=== PATIENT | female | born 1950 | race Caucasian/White ===

== ENCOUNTER 2018-05-06 23:13 | Emergency (ER) | payer OTHER, MEDICARE ==
--- NOTE | 2018-05-06 23:16 | PDOC ---
History of Present Illness - General Chief Complaint: Pain Stated Complaint: BODY PAIN Time Seen by Provider: 05/06/18 23:16 - History of Present Illness Initial Comments: 05/07/18 01:39 Chief complaint: Headache fever chills body aches joint pain History of present illness: 67 years old no significant past medical history presents to the emergency department with headaches on Monday and Monday of last week which have since resolved this was followed then by subjective fever chills diffuse body aches generalized fatigue malaise and joint pains periods joints affected were predominantly her larger joints starting in the left ankle than bilateral knees hips shoulders elbows and wrists. Symptoms were intermittent seem to come and go were traditionally worsening night but didn't seem to respond to Tylenol. Today patient began to develop a rash today after attending a concert in the evening joint pain began to return and she decided to come to the emergency department for evaluation. No travel no sick contacts to stop guarding no known tick bites possible some mosquito bites recently. Past History - Past Medical History Allergies/Adverse Reactions: Allergies Allergy/AdvReac Type Severity Reaction Status Date / Time No Known Allergies Allergy Verified 05/06/18 23:15 Home Medications: Ambulatory Orders Omeprazole [Prilosec] 40 mg PO DAILY 03/12/15 GI Disorders: Yes (ACID REFLUX) - Immunization History Immunization Up to Date: No - Suicide/Smoking/Psychosocial Hx Smoking History: Never smoked Have you smoked in the past 12 months: No Hx Alcohol Use: (OCC) Substance Use Type: None Review of Systems - Review of Systems Comments:: 05/07/18 01:43 ROS: A complete review of 10 out of 10 review of systems is taken and is negative apart from what is previously mentioned below and in the HPI. *Physical Exam - Physical Exam Comments: 05/07/18 01:43 Vitals: Triage Vital signs reviewed General Appearance: no acute distress, well nourished well developed, Head: Atraumatic, Eyes: Pupils equal reactive round, extraocular movement intact Ears: TM's normal bilaterally; Nose: Nares patent bilaterally;no nasal congestion Throat: Posterior oropharynx without erythema, mucous membranes moist, Neck: Supple;No Nucal rigidity Chest Wall: Nontender Cardiac: Regular rate and rhythym, no murmurs, no rubs, no gallops, Lungs: Clear to auscultation bilateral, good air movement bilaterally, Abdomen: Soft, non distended, normal bowel sounds, non tender to palpation Extremities: Full range of motion to all extremities, no cyanosis, clubbing, or edema Skin: Warm and dry, diffuse blanching maculopapular rash to arms and legs, puritic, no petechiae Neuro: AOX3; Cranial Nerves 2-12 grossly intact, Strength intact to all extremities, Sensation intact to all extremities,gait normal Psych: normal mood, normal affect Heart Score/ECG Review - ECG Impressions Comment:: 05/07/18 01:[address] elevations no T-wave inversions no evidence of heart block. ED Treatment Course - LABORATORY CBC & Chemistry Diagram: 05/07/18 00:15 05/07/18 00:15 Medical Decision Making - Medical Decision Making 05/07/18 01:45 Chief complaint: Headache fever chills body aches joint pain History of present illness: 67 years old no significant past medical history presents to the emergency department with headaches on Monday and Monday of last week which have since resolved this was followed then by subjective fever chills diffuse body aches generalized fatigue malaise and joint pains periods joints affected were predominantly her larger joints starting in the left ankle than bilateral knees hips shoulders elbows and wrists. Symptoms were intermittent seem to come and go were traditionally worsening night but didn't seem to respond to Tylenol. Today patient began to develop a rash today after attending a concert in the evening joint pain began to return and she decided to come to the emergency department for evaluation. No travel no sick contacts to stop guarding no known tick bites possible some mosquito bites recently. Differential diagnosis includes tickborne illness, viral illness with postviral arthralgias, West Nile virus, parvovirus, EBV, less likely meningitis given no fever no headache no neck stiffness at this time Labs including CBC chemistry tick panel peripheral blood smear West Nile Ehrlichia Babesia Lyme mono and parvovirus sent and blood cultures sent to lab We'll treat with IV fluids Tylenol observing reassessed Reevaluation 145 labs notable for slightly low WBC and elevated ESR CRP tick panel peripheral smear and viral panels pending His point patient is feeling much better after Tylenol fluids no significantly worrisome findings on workup patient has PCP who she'll follow-up with tomorrow I also provided the patient with infectious disease follow-up for tomorrow She was instructed to return to the emergency department immediately for any severe worsening symptoms otherwise she will follow-up with her doctor infectious disease for further evaluation and follow up on the remainder of the blood work which was sent tonight. Findings, the need for follow-up and strict return instructions discussed with patient. *DC/Admit/Observation/Transfer Diagnosis at time of Disposition: Arthralgia Qualifiers: Joint pain location: hip Laterality: bilateral Qualified Code(s): M25.551 - Pain in right hip - Discharge Dispostion Disposition: HOME Condition at time of disposition: Stable Decision to Admit order: No - Referrals Referrals: Mukesh Sosa MD [Staff Physician] - - Patient Instructions Printed Discharge Instructions: DI for Arthralgia Additional Instructions: Drink plenty of fluids. [id number] Tylenol as directed on package. 25 mg of Benadryl every 4-6 hours as needed for rash. Follow-up tomorrow with your PCP as well as arranging an appointment with Dr. Sosa infectious disease. Return to the emergency department immediately for any high fevers, severe worsening symptoms severe body pains weakness chest pain shortness of breath or for any concerns. - Post Discharge Activity
[2018-05-06 23:18] VITALS: BP 115/67; PULSE 84; TEMP 98.3; BMI 24.3
[2018-05-06] MEDS ORDERED: ACETAMINOPHEN 1000 MG/100 ML VIAL (NON FORMULARY) IVPB ONE (23:58)
[2018-05-06] MEDS ORDERED: SODIUM CHLORIDE 0.9% 1000 ML INFUS.BAG IV ONE (23:58)
[2018-05-07] MEDS ORDERED: ACETAMINOPHEN INJECTION 100 ML IVPB ONE (00:13)
[2018-05-07 00:57] LABS: BASO % 0.3 % (0-2.0); EOS % 1.5 % (0-4.5); HEMATOCRIT 39.5 % (32.4-45.2); HEMOGLOBIN 13.5 GM/dL (10.7-15.3); LYMPH % 37.2 % (8-40); MCH 31.8 pg (25.7-33.7); MCHC 34.1 g/dl (32.0-36.0); MEAN CELL VOLUME 93.2 fl (80-96); MEAN PLT VOLUME 8.6 fl (7.5-11.1); MONO % 9.6 % (3.8-10.2); NEUT % 51.4 % (42.8-82.8); PLATELET COUNT 170 K/MM3 (134-434); RBC 4.24 M/mm3 (3.60-5.2); RDW 13.5 % (11.6-15.6); WHITE BLOOD COUNT 3.9 K/mm3 (4.0-10.0)
[2018-05-07 01:02] LABS: URINE APPEARANCE CLEAR; URINE BILIRUBIN NEGATIVE (<2.0 mg/dL); URINE COLOR STRAW; URINE GLUCOSE (UA) NEGATIVE (NEGATIVE); URINE KETONE 1+ (NEGATIVE); URINE NITRITE NEGATIVE (NEGATIVE); URINE PROTEIN NEGATIVE (NEGATIVE); URINE UROBILINOGEN NEGATIVE mg/dL (0.2-1.0)
[2018-05-07 01:11] LABS: INR 0.98 (0.83-1.09); PROTHROMBIN TIME (PATIENT) 11.1 SEC (9.7-13.0)
[2018-05-07 01:14] LABS: ACTIVATED PTT 29.4 SECONDS (25.2-36.5)
[2018-05-07 01:20] LABS: ALBUMIN 3.8 g/dl (3.4-5.0); ALK PHOS 86 U/L (45-117); ANION GAP 8 MMOL/L (8-16); BILIRUBIN,TOTAL 0.3 mg/dL (0.2-1.0); BLOOD UREA NITROGEN 12 mg/dL (7-18); CALCIUM 8.8 mg/dL (8.5-10.1); CHLORIDE 98 mmol/L (98-107); CO2 28 mmol/L (21-32); CREATININE 0.8 mg/dL (0.55-1.02); GLUCOSE,RANDOM 99 mg/dL (74-106); POTASSIUM 4.2 mmol/L (3.5-5.1); SGOT/AST 42 U/L (15-37); SGPT/ALT 47 U/L (12-78); SODIUM 134 mmol/L (136-145); TOT PROT 7.5 g/dl (6.4-8.2)
[2018-05-07 01:22] LABS: URINE LEUK ESTERASE 2+ (NEGATIVE)
[2018-05-07 02:10] LABS: EPI CELLS FEW /HPF (FEW); URINE BACTERIA RARE /hpf (NONE SEEN); URINE MUCUS RARE
--- NOTE | 2018-05-07 10:27 | EKG ---
Test Reason : Blood Pressure : / mmHG Vent. Rate : 085 BPM Atrial Rate : 085 BPM P-R Int : 190 ms QRS Dur : 088 ms QT Int : 348 ms P-R-T Axes : 074 033 026 degrees QTc Int : 414 ms NORMAL SINUS RHYTHM CANNOT RULE OUT ANTERIOR INFARCT , AGE UNDETERMINED ABNORMAL ECG NO PREVIOUS ECGS AVAILABLE Confirmed by BRUCE BARRIOS MD ([id number]) on 05/07/2018 10:26:56 AM Referred By: MD ROBERTSON Confirmed By:BRUCE BARRIOS MD
[2018-05-08 16:30] LABS: PARV B19 IGG 5.9 index (0.0-0.8); PARV B19 IGM 0.2 index (0.0-0.8)
[2018-05-09 14:17] LABS: WEST NILE VIRUS AB SERUM,IGM Negative (Negative)
[2018-05-09 16:35] LABS: BABESIA MICROTI ANTIBODY IGG <1:10 (Neg:<1:10); BABESIA MICROTI ANTIBODY IGM <1:10 (Neg:<1:10); E. chaff IgG Negative (Neg:<1:64)
== END 2018-05-07 02:32 | disposition home or self-care (01) ==
LOC: FER 23:13
PROC: 3E0337Z Introduction of Electrolytic and Water Balance Substance into Peripheral Vein, Percutaneous Approach (ICD-10-PCS; principal; 2018-05-06)
PROC: 3E033NZ Introduction of Analgesics, Hypnotics, Sedatives into Peripheral Vein, Percutaneous Approach (ICD-10-PCS; 2018-05-06)
PROC: 3E033GC Introduction of Other Therapeutic Substance into Peripheral Vein, Percutaneous Approach (ICD-10-PCS; 2018-05-06)
DX: M25.551 Pain in right hip (principal); M25.552 Pain in left hip; K21.9 Gastro-esophageal reflux disease without esophagitis
CPT/HCPCS: 36415; 71045-TC-FY; 80053; 81003; 81015; 85025; 85610; 85651; 85730; 86140; 86308; 86666; 86747; 86753; 86788; 86789; 87040; 87086; 87186; 87207; 93005; 99283-25; J0131; J7030

== ENCOUNTER 2021-12-17 00:31 | Emergency (ER) | payer OTHER, MEDICARE ==
[2021-12-17 00:40] VITALS: BP 141/76; PULSE 82; TEMP 97.7; BMI 24.3
[2021-12-17] MEDS ORDERED: PHENAZOPYRIDINE HCL 100 MG TABLET (FP) PO ONE (00:53)
[2021-12-17] MEDS ORDERED: NITROFURANTOIN MACROCRYSTAL 50 MG CAPSULE (FP) ONE (00:56)
[2021-12-17] MEDS ORDERED: PHENAZOPYRIDINE HCL 100 MG TABLET (FP) ONE (00:56)
[2021-12-17] MEDS ORDERED: NITROFURANTOIN MACROCRYSTAL 50 MG CAPSULE (FP) PO SCH (01:00)
[2021-12-17 02:27] LABS: EPI CELLS 2 /uL (0-25.1); HYALINE CASTS 1 /uL (0-3.1); PH,URINE 5.5 (5.0-8.0); URINE APPEARANCE CLOUDY; URINE BACTERIA >9,000 /uL (0-1359); URINE BILIRUBIN NEGATIVE (NEGATIVE); URINE COLOR YELLOW; URINE GLUCOSE (UA) NEGATIVE (NEGATIVE); URINE KETONE TRACE (NEGATIVE); URINE LEUK ESTERASE 2+ (NEGATIVE); URINE NITRITE NEGATIVE (NEGATIVE); URINE PROTEIN 2+ (NEGATIVE); URINE RBC 4193 /uL (0-23.9); URINE WBC 2214 /uL (0-25.8)
[2021-12-17 03:16] LABS: URINE CRYSTALS NONE SEEN /hpf
== END 2021-12-17 01:01 | disposition home or self-care (01) ==
LOC: FER 00:31
DX: N30.01 Acute cystitis with hematuria (principal)
CPT/HCPCS: 81003; 87086; 87186; 99283-25